=== PATIENT | female | born 1985 | race American Indian/Alaskan Native ===

== ENCOUNTER 2016-09-07 11:47 | Emergency (ER) | payer OTHER ==
[2016-09-07 12:00] VITALS: BMI 26.3
--- NOTE | 2016-09-07 12:08 | C.PDOC ---
History Of Present Illness 30 y/o female presents to ED with c/o left ankle pain since yesterday. Patient states that pain first started while walking at work, however, notes pain progressively worsened as day went on. Patient reports she now has difficulty walking due to pain. Denies any injury, trauma, weakness, numbness, or other complaints. Time Seen by Provider: 09/07/16 12:01 Chief Complaint (Nursing): Lower Extremity Problem/Injury History Per: Patient History/Exam Limitations: no limitations Onset/Duration Of Symptoms: Days (1) Current Symptoms Are (Timing): Still Present Recent travel outside of the [place]: No Past Medical History Reviewed: Historical Data, Nursing Documentation, Vital Signs Vital Signs: Last Vital Signs Temp 98.7 F 09/07/16 13:55 Pulse 75 09/07/16 13:55 Resp 16 09/07/16 13:55 BP 125/75 09/07/16 13:55 Pulse Ox 99 09/07/16 13:55 - Medical History PMH: No Chronic Diseases Family History: States: Unknown Family Hx - Social History Hx Alcohol Use: Yes Hx Substance Use: No - Immunization History Hx Tetanus Toxoid Vaccination: No Hx Influenza Vaccination: No Hx Pneumococcal Vaccination: No Review Of Systems Except As Marked, All Systems Reviewed And Found Negative. Constitutional: Negative for: Fever, Chills Musculoskeletal: Positive for: Other (left ankle pain). Negative for: Back Pain Skin: Negative for: Rash Neurological: Negative for: Weakness, Numbness Physical Exam - Physical Exam Appears: Non-toxic, No Acute Distress Skin: Normal Color, Warm, Dry Head: Atraumatic, Normacephalic Extremity: Normal ROM, No Tenderness, Capillary Refill (< 2 sec.), No Deformity , Swelling (minimal swelling left lateral malleolus ) Extremity: Left: Atraumatic (ankle), Bilateral: Normal Color And Temperature Pulses: Left Dorsalis Pedis: Normal, Right Dorsalis Pedis: Normal Neurological/Psych: Oriented x3, Normal Motor, Normal Sensation ED Course And Treatment O2 Sat by Pulse Oximetry: 97 (RA) Pulse Ox Interpretation: Normal - Other Rad Left Ankle XR X-Ray: Interpreted by Me, Viewed By Me Interpretation: negative for fx or dislocation Left Foot XR X-Ray: Interpreted by Me, Viewed By Me Interpretation: normal Progress Note: Treated with Motrin. Xrays ordered and reviewed. Air cast and crutches were placed by the equine pharmacology technician and checked by me. Disposition - Disposition Referrals: [facility] [Outside] Disposition: HOME/ ROUTINE Disposition Time: 13:13 Condition: GOOD Additional Instructions: Follow up with the natural resource economist within 1-2 days. 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 - Scribe Statement The provider has reviewed the documentation as recorded by the Scribe Rubens Albert All medical record entries made by the Donaldibjose alejandro were at my direction and personally dictated by me. I have reviewed the chart and agree that the record accurately reflects my personal performance of the history, physical exam, medical decision making, and the department course for this patient. I have also personally directed, reviewed, and agree with the discharge instructions and disposition.
[2016-09-07 14:17] VITALS: BP 125/75; PULSE 75; RESP 16; TEMP 98.7
--- NOTE | 2016-09-07 14:29 | RAD ---
PROCEDURE: Left Foot Radiographs. HISTORY: foot pain laterally COMPARISON: None. FINDINGS: BONES: An os peroneum is noted No fracture. JOINTS: Normal. SOFT TISSUES: Normal. OTHER FINDINGS: None. IMPRESSION: No fracture. No lytic lesions. Accessory ossification center an os peroneum. This is laterally positioned. These can occasionally be symptomatic. If further evaluation is needed consider MRI
--- NOTE | 2016-09-07 14:30 | RAD ---
PROCEDURE: Left Ankle Radiographs. HISTORY: lateral ankle pain COMPARISON: None FINDINGS: BONES: An os peroneum - at an accessory ossification center is noted. . No fracture. JOINTS: . No osteoarthritis. Ankle mortise maintained. Talar dome intact SOFT TISSUES: Normal. OTHER FINDINGS: None. IMPRESSION: No fracture or distal. Accessory ossification center os peroneum -laterally position. These can be symptomatic. If further evaluation is needed consider MRI
[2016-09-09 06:02] VITALS: O2SAT 97
== END 2016-09-07 14:00 | disposition home or self-care (01) ==
LOC: C.ER 11:47
DX: S93.402A Sprain of unspecified ligament of left ankle, initial encounter (principal); X58.XXXA Exposure to other specified factors, initial encounter; Y93.01 Activity, walking, marching and hiking; Y92.89 Other specified places as the place of occurrence of the external cause
CPT/HCPCS: 73610; 73630; 97116; 97161; 99285; G8978; G8979; G8980

== ENCOUNTER 2017-05-09 17:58 | Emergency (ER) | payer OTHER ==
[2017-05-09 18:06] VITALS: BMI 29.2
[2017-05-09 18:08] VITALS: BP 134/86; PULSE 84; RESP 16; TEMP 98.6; O2SAT 100
--- NOTE | 2017-05-09 19:37 | C.PDOC ---
History Of Present Illness Mary Shepard is a 31 year old female, with no significant past medical history, who presents to the emergency department complaining of left medial ankle pain onset since this morning. Patient reports she needs to step on her toes to ambulate. She denies any trauma, numbness, tingling or weakness. No further medical complaints. PMD: None provided. Time Seen by Provider: 05/09/17 18:20 Chief Complaint (Nursing): Lower Extremity Problem/Injury History Per: Patient History/Exam Limitations: no limitations Onset/Duration Of Symptoms: Hrs (today) Current Symptoms Are (Timing): Still Present Past Medical History Reviewed: Historical Data, Nursing Documentation, Vital Signs Vital Signs: Last Vital Signs Temp 98.6 F 05/09/17 18:07 Pulse 84 05/09/17 18:07 Resp 16 05/09/17 18:07 BP 134/86 05/09/17 18:07 Pulse Ox 100 05/09/17 19:37 - Medical History PMH: No Chronic Diseases Surgical History: No Surg Hx Family History: States: Unknown Family Hx - Social History Hx Tobacco Use: Yes (Current some days smoker) Hx Alcohol Use: Yes Hx Substance Use: No - Immunization History Hx Tetanus Toxoid Vaccination: No Hx Influenza Vaccination: No Hx Pneumococcal Vaccination: No Review Of Systems Musculoskeletal: Positive for: Foot Pain (left medial ankle) Neurological: Negative for: Weakness, Numbness (or tingling) Physical Exam - Physical Exam Appears: No Acute Distress Skin: Normal Color, Warm, Dry Head: Atraumatic, Normacephalic Eye(s): bilateral: Normal Inspection Neck: Normal ROM Extremity: Normal ROM (full ROM at ankles), Tenderness (mild tenderness to the anterior medial malleolus.), No Calf Tenderness, No Deformity, No Swelling ( left ankle), Other (Good pulse on left ankle. No bony tenderness in the foot. ) Pulses: Left Dorsalis Pedis: Normal, Right Dorsalis Pedis: Normal Neurological/Psych: Oriented x3 ED Course And Treatment O2 Sat by Pulse Oximetry: 100 (RA) Pulse Ox Interpretation: Normal Medical Decision Making Medical Decision Making: Initial Impression: Ankle sprain Initial Plan: --Tylenol 325mg tab 975 mg PO --Celso bandage --Ankle left 3 views [RAD] --Reevaluation no fx noted on xray. celso bandage applied. pt able to ambulate. d/c home with podiatry follow up. Disposition Counseled Patient/Family Regarding: Studies Performed, Diagnosis, Need For Followup - Disposition Referrals: Podiatry Clinic [Outside] Disposition: HOME/ ROUTINE Disposition Time: 19:34 Condition: STABLE Additional Instructions: Wear celso bandage on ankle for support, Tylenol or Motrin for pain. Follow up in podiatry clinic- call for an appointment. ELevate foot when possible. Instructions: Ankle Sprain (ED) Forms: General Discharge Instructions, [facility] [facility] (Tongan), Work Excuse - Clinical Impression Clinical Impression: Left ankle sprain - Scribe Statement Jony Bueno All medical record entries made by the Scribe were at my direction and personally dictated by me. I have reviewed the chart and agree that the record accurately reflects my personal performance of the history, physical exam, medical decision making, and the department course for this patient. I have also personally directed, reviewed, and agree with the discharge instructions and disposition.
--- NOTE | 2017-05-10 10:00 | RAD ---
PROCEDURE: Left Ankle Radiographs. HISTORY: medial ankle pain COMPARISON: None FINDINGS: BONES: . No acute fracture. A well corticated ossification probably in a a accessory ossification center -os peroneum borders the cuboid bone. Arrows denoting patient's current area of concern are pointing medially at the tibiotalar level Joints . Tibial fibular and talofibular mild subchondral cystic arthrosis. Ankle mortise maintained. Talar dome intact SOFT TISSUES: Infra medial malleoli are soft tissue swellings OTHER FINDINGS: None. IMPRESSION: No fracture. Medial infra malleolus soft tissue swelling. Intact talar dome Subchondral cystic mild arthrosis
== END 2017-05-09 19:46 | disposition home or self-care (01) ==
LOC: C.ER 17:58
DX: S93.402A Sprain of unspecified ligament of left ankle, initial encounter (principal); X58.XXXA Exposure to other specified factors, initial encounter; Z87.891 Personal history of nicotine dependence